=== PATIENT | male | born 1985 | race Hispanic/Latino ===

== ENCOUNTER 2019-01-10 08:55 | Emergency (ER) | payer OTHER ==
[2019-01-10] MEDS ORDERED: ORPHENADRINE CITRATE 30 MG/ML ML ONE (09:14)
[2019-01-10] MEDS ORDERED: KETOROLAC TROMETHAMINE 30MG/ML ONE (09:14)
== END 2019-01-10 09:45 | disposition home or self-care (01) ==
LOC: EDH 08:55
DX: M62.830 Muscle spasm of back (principal); M54.5 Low back pain; Z72.0 Tobacco use; V49.59XA Passenger injured in collision with other motor vehicles in traffic accident, initial encounter; Y93.89 Activity, other specified; Y92.89 Other specified places as the place of occurrence of the external cause; Y99.8 Other external cause status
CPT/HCPCS: 96372 ×2; 99284; J1885; J2360

== ENCOUNTER → 2020-09-19 | Outpatient (CLI) | payer BC | END | disposition home or self-care (01) | LOC: RAH 09:40 | PROVIDERS: ATTEND Family Medicine | DX: M25.521 Pain in right elbow (principal) | CPT/HCPCS: 73080 ==